=== PATIENT | male | born 1960 | race Caucasian/White ===

== ENCOUNTER 2017-02-11 07:00 | Emergency (ER) | payer OTHER ==
[~2017-02-11] VITALS: Ht 157.5 cm; Wt 70.8 kg
[~2017-02-11 07:00] MED LIST: BENADRYL; BP MEDS PO; MOTRIN600 MG; PHENERGAN; PREDNISONE20 MG PO; QVAR HFA M80 MCG/ACT INH; VENTOLIN H0.09 MG/Ac IH; XOPENEX
[2017-02-11 07:09] VITALS: BP 121/60
--- NOTE | 2017-02-11 07:18 | NUR ---
PT CAME W/ C/O SOB X3 WEEKS WITH AUDIBLE WHEEZING AND COUGH;PT STATES HE HAS HEADACHE AND SLIGHT NON RADIATING CP;HX OF ASTHMA AND HTN;AAOX4;NO ACUTE DISTRESS NOTED;HOB ELEVATED;NEEDS ATTENDED;SAFETY MEASURES DONE;POSITIONED FOR COMFORT;MD AT BEDSIDE.
[2017-02-11] MEDS ORDERED: ALBUTEROL 0.083% 2.5 MG/3 ML NEBU INH ONE (07:20)
[2017-02-11] MEDS ORDERED: IPRATROPIUM 0.02% 0.5 MG/2.5 ML NEBU INH ONE (07:20)
[2017-02-11] MEDS ORDERED: predniSONE 20 MG TAB PO ONE (07:20)
--- NOTE | 2017-02-11 07:35 | NUR ---
ADMITING DX: ADULT-ASTHMA AWAKE AND ALERT IN HFW POSITION EDUCATION PROVIDED TO PATIENT WITH ACKNOWLEDGEMENT ON HHN THERAPY AND DRUGS HHN THERPAY GIVEN ORDERED ENCOURAGED DEEP BREATH DURING THERAPY TOLERATED WELL WITHOUT INCIDENT
--- NOTE | 2017-02-11 07:39 | NUR ---
Breathing treatment administered at bedside by respiratory therapist.
--- NOTE | 2017-02-11 07:54 | NUR ---
Dr. Ta re-evaluating patient at bedside.
--- NOTE | 2017-02-11 08:05 | NUR ---
PT STATES HE FEELS MUCH BETTER NOW;NO ACUTE DISTRESS NOTED;WILL CONTINUE TO MONITOR PT.
--- NOTE | 2017-02-11 08:14 | NUR ---
Patient discharged with v/s stable. Written and verbal after care instructions given and explained. Patient alert, oriented and verbalized understanding of instructions. Ambulatory with steady gait. All questions addressed prior to discharge. ID band removed. Patient advised to follow up with PMD. Rx of ALBUTEROL SULFATE AND PREDNISONE given. Patient educated on indication of medication including possible reaction and side effects. Opportunity to ask questions provided and answered.
[2017-02-11 08:15] VITALS: BP 144/71
== END 2017-02-11 08:14 | disposition home or self-care (01) ==
LOC: MED 07:00
DX: J45.901 Unspecified asthma with (acute) exacerbation (principal); I10 Essential (primary) hypertension
CPT/HCPCS: 94640; 99283; J7512; J7613; J7644